=== PATIENT | female | born 1940 | race Caucasian/White ===

== ENCOUNTER 2016-05-30 07:10 | Emergency (ER) | payer OTHER ==
[~2016-05-30] VITALS: Ht 152.4 cm; Wt 36.3 kg
[2016-05-30 07:25] VITALS: BP 140/54
== END 2016-05-30 08:08 | disposition home or self-care (01) ==
LOC: ER 07:16
DX: J20.9 Acute bronchitis, unspecified (principal)

== ENCOUNTER 2017-04-24 14:51 | Inpatient (IN) | payer OTHER ==
[~2017-04-24] VITALS: Ht 157.5 cm; Wt 36.2 kg
[2017-04-24 15:56] LABS: Basophils # (auto) 0 uL; Basophils % (auto) 0.4 % (0.0-2.0); Eosinophils # (auto) 0.1 uL; Eosinophils % (auto) 0.8 % (0.0-7.0); Hematocrit 34.7 % (36.0-46.0); Hemoglobin 11.4 g/dL (12.2-16.2); Lymphocytes # (auto) 0.9 uL; Lymphocytes % (auto) 8.5 % (10.0-50.0); Mean Corpuscular Hemoglobin 28.9 pg (28.0-32.0); Mean Corpuscular Hgb Conc. 32.9 g/dL (32.0-36.0); Mean Corpuscular Volume 87.9 fL (80.0-100.0); Monocytes # (auto) 0.9 uL; Monocytes % (auto) 8.6 % (0.0-12.0); Neutrophils # (auto) 8.2 uL; Neutrophils % (auto) 81.7 % (37.0-80.0); Nucleated Red Blood Cells % 0.1 %; Platelet Count (auto) 225 10^3/uL (140-450); Red Blood Cells 3.94 10^6/uL (4.0-5.20); Red Cell Distribution Width 13.8 % (11.8-14.3); White Blood Cell 10.1 10^3/uL (4.4-10.8)
[2017-04-24 16:18] LABS: Alanine Aminotransferase 13 U/L (13-56); Albumin 2.6 g/dL (3.4-5.0); Alkaline Phosphatase 81 U/L (45-117); Anion Gap 5 (5-15); Aspartate Aminotransferase 13 U/L (15-37); Bilirubin, Total 0.3 mg/dL (0.2-1.0); Blood Urea Nitrogen 10 mg/dL (7-18); Calcium 7.9 mg/dL (8.5-10.1); Carbon Dioxide 30 mmol/L (21-32); Chloride 107 mmol/L (98-107); GFR African American 199 mL/min; GFR Non-African American 165 mL/min; Glucose 104 mg/dL (74-106); Magnesium 2.4 mg/dL (1.6-2.6); Potassium 3.7 mmol/L (3.5-5.1); Sodium 142 mmol/L (136-145); Total Protein 6.7 g/dL (6.4-8.2)
[2017-04-25] MEDS ORDERED: IOHEXOL 350 MG/ML 100ML IJ ONE (07:33)
[2017-04-25] MEDS ORDERED: IPRATROPIUM BROM 0.5 MG/2.5ML INH SOL NEB ONE (07:45)
[2017-04-25] MEDS ORDERED: cefTRIAXone 1GM/10ml IVPUSH 10 ML IV ONE (07:45)
[2017-04-25] MEDS ORDERED: methylPREDNISolone SOD SUCC 125 MG/2 ML VL IV ONE (07:45)
[2017-04-25] MEDS ORDERED: ALBUTEROL SULF 2.5 MG/0.5ML(0.5%) NEB SOLN NEB ONE (07:45)
[2017-04-25] MEDS ORDERED: AZITHROMYCIN 500MG/ 250ML 250 ML IV ONE (10:30)
[2017-04-25] MEDS ORDERED: PNEUMOCOCCAL VACC POLYS 25 MCG/0.5 ML VIAL IM ONE (12:00)
[2017-04-25] MEDS ORDERED: NITROGLYCERIN 0.4 MG SL TAB SL PRN (12:00)
[2017-04-25] MEDS ORDERED: MORPHINE SULFATE 4 MG/ML SYR/VIAL IV PRN (12:00)
[2017-04-25] MEDS: guaiFENesin-CODEINE LIQUID 5 ML UD PO SCH ×2 (12:34→20:17)
[2017-04-25] MEDS: LEVOFLOXACIN 750MG 150 ML IV SCH ×2 (12:50→14:25)
[2017-04-25 17:11] VITALS: BP 125/68
[2017-04-25] MEDS ORDERED: PSEU-123 PO (18:28)
[2017-04-25] MEDS ORDERED: CETI1TAB36 PO (18:29)
[2017-04-25 20:00] VITALS: BP 105/53
[2017-04-25 21:49] VITALS: BP 105/53
[2017-04-26] MEDS: guaiFENesin-CODEINE LIQUID 5 ML UD PO SCH ×2 (04:38→11:45)
[2017-04-26 05:12] VITALS: BP 115/60
[2017-04-26 06:51] LABS: Basophils # (auto) 0 uL; Eosinophils # (auto) 0 uL; Eosinophils % (auto) 0.1 % (0.0-7.0); Hematocrit 31.6 % (36.0-46.0); Hemoglobin 10.2 g/dL (12.2-16.2); Lymphocytes # (auto) 0.9 uL; Lymphocytes % (auto) 6.6 % (10.0-50.0); Mean Corpuscular Hemoglobin 28.1 pg (28.0-32.0); Mean Corpuscular Hgb Conc. 32.2 g/dL (32.0-36.0); Monocytes # (auto) 1.5 uL; Monocytes % (auto) 11.4 % (0.0-12.0); Neutrophils % (auto) 81.9 % (37.0-80.0); Platelet Count (auto) 290 10^3/uL (140-450); Red Blood Cells 3.64 10^6/uL (4.0-5.20); White Blood Cell 13.5 10^3/uL (4.4-10.8)
[2017-04-26 07:00] VITALS: BP 98/54
[2017-04-26 08:00] VITALS: BP 98/54
[2017-04-26] MEDS ORDERED: ENOXAPARIN SOD 30 MG/0.3 ML SYRINGE SC SCH (10:00)
[2017-04-26] MEDS ORDERED: ENOXAPARIN SOD 40 MG/0.4 ML SYRINGE SUBCUT SCH (10:00)
[2017-04-26] MEDS ORDERED: FLORASTOR (S. BOULARDII) 250 MG CAP PO SCH (10:00)
[2017-04-26] MEDS ORDERED: LEVOFLOXACIN 750MG 150 ML IV SCH (10:00)
[2017-04-26] MEDS ORDERED: ALBU0.5N2 IN (11:01)
[2017-04-26] MEDS ORDERED: LEVO750T2 PO (11:01)
[2017-04-26] MEDS ORDERED: GUAI600T64 PO (11:01)
[2017-04-26 11:51] VITALS: BP 100/53
[2017-04-26 16:21] VITALS: BP 100/52
== END 2017-04-26 17:00 | disposition home health service (06) | DRG 189 ==
LOC: ER 14:51 → EDBD 14:51 → TELE 14:52 → ER 04-25 00:59 → TELE-CENTR 04-25 17:57
PROVIDERS: ADMIT Hospitalist; ATTEND Hospitalist
DX: J96.21 Acute and chronic respiratory failure with hypoxia (principal); J18.9 Pneumonia, unspecified organism; E46 Unspecified protein-calorie malnutrition; J47.0 Bronchiectasis with acute lower respiratory infection; Z68.1 Body mass index [BMI] 19.9 or less, adult; T38.0X5A Adverse effect of glucocorticoids and synthetic analogues, initial encounter; D72.829 Elevated white blood cell count, unspecified; Z23 Encounter for immunization
CPT/HCPCS: 36415; 71046; 71275; 80053; 83605; 83735; 84484; 85025; 87040; 87070; 87205; 87501; 87804; 93005; 93306; 94640; 96365; 96366; 96367; 96372; 96375; 99291; J1956

== ENCOUNTER 2018-11-25 11:40 | Emergency (ER) | payer OTHER ==
[~2018-11-25] VITALS: Ht 152.4 cm; Wt 43.1 kg
[~2018-11-25 11:40] MED LIST: ALBU0.5N2 IN; CETI1TAB36 PO; GUAI600T64 PO; LEVO750T2 PO; PSEU-123 PO
[2018-11-25 13:36] LABS: Basophils # (auto) 0 uL; Basophils % (auto) 0.2 % (0.0-2.0); Eosinophils # (auto) 0 uL; Eosinophils % (auto) 0.1 % (0.0-7.0); Hematocrit 40.9 % (36.0-46.0); Hemoglobin 13.5 g/dL (12.2-16.2); Lymphocytes # (auto) 0.7 uL; Lymphocytes % (auto) 5.4 % (10.0-50.0); Mean Corpuscular Hemoglobin 29.8 pg (28.0-32.0); Mean Corpuscular Volume 90.2 fL (80.0-100.0); Monocytes # (auto) 0.4 uL; Monocytes % (auto) 3.5 % (0.0-12.0); Neutrophils # (auto) 11.6 uL; Neutrophils % (auto) 90.8 % (37.0-80.0); Platelet Count (auto) 175 10^3/uL (140-450); Red Blood Cells 4.53 10^6/uL (4.0-5.20); Red Cell Distribution Width 14.2 % (11.8-14.3); White Blood Cell 12.7 10^3/uL (4.4-10.8)
[2018-11-25] MEDS ORDERED: KETOROLAC TROMETH 30 MG/ML 1ML VIAL IV ONE (13:45)
[2018-11-25 14:02] LABS: Alanine Aminotransferase 15 U/L (13-56); Albumin 3.6 g/dL (3.4-5.0); Anion Gap 5 (5-15); Aspartate Aminotransferase 19 U/L (15-37); BUN/Creatinine Ratio 41.2; Blood Urea Nitrogen 28 mg/dL (7-18); Calcium 8.4 mg/dL (8.5-10.1); Carbon Dioxide 27 mmol/L (21-32); Chloride 110 mmol/L (98-107); GFR African American 108 mL/min; GFR Non-African American 89 mL/min; Glucose 132 mg/dL (74-106); Potassium 3.8 mmol/L (3.5-5.1); Sodium 142 mmol/L (136-145)
[2018-11-25 14:06] LABS: Alkaline Phosphatase 86 U/L (45-117); Bilirubin, Total 0.5 mg/dL (0.2-1.0); Total Protein 6.7 g/dL (6.4-8.2)
[2018-11-25 14:24] VITALS: BP 132/53
[2018-11-25 14:26] LABS: Urine Bacteria FEW /hpf (None Seen); Urine Blood Negative /uL (Negative); Urine Hyaline Cast FEW /lpf (0 - 2); Urine Specific Gravity 1.016 (1.001-1.035); Urine WBC 48 /hpf (0 - 5)
[2018-11-25] MEDS ORDERED: SODIUM CHLORIDE 0.9% 1,000 ML IV ONE (14:30)
[2018-11-25] MEDS ORDERED: cefTRIAXone 1GM/50ML D5W 50 ML IV ONE (14:45)
== END 2018-11-25 17:45 | disposition home or self-care (01) ==
LOC: EDBD 11:40 → ER 11:42
DX: N39.0 Urinary tract infection, site not specified (principal); N20.2 Calculus of kidney with calculus of ureter; N13.4 Hydroureter; Z79.2 Long term (current) use of antibiotics; Z79.899 Other long term (current) drug therapy
CPT/HCPCS: 36415; 71045; 74176; 80053; 81001; 84484; 85025; 93005; 96365; 96375; 99284; J0696; J1885; J7030

== ENCOUNTER 2024-05-03 01:45 | Inpatient (IN) | payer OTHER ==
[2024-05-03] VITALS (9 sets, daily range): BP systolic 126–148; BP diastolic 56–67; PULSE 89–106; RESP 16–18; TEMP 97.9–98.3; O2SAT 93–99
[~2024-05-03] VITALS: Ht 152.4 cm; Wt 31.4 kg
[~2024-05-03 01:45] MED LIST changes: -LEVO750T2 PO; +LEVO750T8 PO; -PSEU-123 PO; +PSEU-295 PO
--- NOTE | 2024-05-03 02:10 | ED.PDOC ---
Musculoskeletal HPI Comments 84 year old female brought in by EMS presents to the ED with a chief complaint of RT leg/hip pain onset today (05/03/24). Per EMS, patient was getting out of bed, lost her balance, fell and landed on RT leg, with swelling noted to RT hip region. Pain medication was given, pain improved from 10/10 to 5/10 after medication. PMHx COPD. Denies any LOC, head injury, nausea, vomiting, chest pain, shortness of breath, headache, dizziness. No other symptoms or modifying factors present at this time. Chief Complaint: Fall Injury Time Seen by MD: 01:49 Primary Care Provider: DR SINCLAIR Reviewed Notes: Medications, Allergies Allergies: Coded Allergies: NO KNOWN ALLERGIES (Unverified , 05/30/16) Home Meds Active Scripts Levofloxacin (Levaquin 750 mg) 750 Mg Tab, 1 TAB PO DAILY for 5 Days, #5 TAB Prov:SHAYAN BARNEY MD 04/26/17 Albuterol Sulfate (Albuterol Sulfate) 0.5 % Neb, 0.5 % IN Q4HPRN PRN, #100 AMB Prov:SHAYAN BARNEY MD 04/26/17 Guaifenesin (GUAIFENESIN ER) 600 Mg Tab, 600 MG PO BID, #90 TAB Prov:SHAYAN BARNEY MD 04/26/17 Reported Medications Cetirizine Hcl (ZYRTEC ALLERGY) 10 Mg Tab, 10 MG PO DAILY, TAB 04/25/17 Pseudoephedrine Hcl (Sudogest) 30 Mg Tab, 20 MG PO BID, TAB 04/25/17 Information Source: Patient, Emergency Med Personnel Mode of Arrival: EMS Location: Right Extremity Location: Hip, Leg Timing: Hours Prehospital treatment: Pain Meds Severity: Moderate Able to Move Extremity: No Pain: Moderate Circumstances: Fall Onset of Symptoms: After Trauma Symptoms: Swelling, Pain DVT Risk Factors: NONE Associated signs and symptoms: Leg pain, Hip pain Past Medical History PAST MEDICAL HISTORY: COPD Surgical History: Denies all surgeries ELEVATOR TENDER History: No Pertinent ELEVATOR TENDER History Family History Family History: Unknown Social History Smoker: Non-Smoker Alcohol: Denies ETOH Use Drugs: Denies Drug Use Lives In: Home Constitutional: denies: chills, diaphoresis, fatigue, fever, malaise, sweats, weakness, others EENTM: denies: blurred vision, double vision, ear bleeding, ear discharge, ear drainage, ear pain, ear ringing, eye pain, eye redness, hearing loss, mouth pa in, mouth swelling, nasal discharge, nose bleeding, nose congestion, nose pain, photophobia, tearing, throat pain, throat swelling, voice changes, others Respiratory: denies: cough, hemoptysis, orthopnea, SOB at rest, shortness of breath, SOB with excertion, stridor, wheezing, others Cardiovascular: denies: chest pain, dizzy spells, diaphoresis, Dyspnea on exertion, edema, irregular heart beat, left arm pain, lightheadedness, palpitations, PND, syncope, others Gastrointestinal: denies: abdomen distended, abdominal pain, blood streaked bowels, constipated, diarrhea, dysphagia, difficulty swallowing, hematemesis, melena, nausea, poor appetite, poor fluid intake, rectal bleeding, rectal pain, vomiting, others Genitourinary: denies: abnormal vagina bleeding, burning, dyspareunia, dysuria, flank pain, frequency, hematuria, incontinence, pain, , vagina discharge, urgency, others Neurological: denies: dizziness, fainting, headache, left sided numbness, left sided weakness, numbness, paresthesia, pre-existing deficit, right sided numbness, right sided weakness, seizure, speech problems, tingling, tremors, weakness, others Musculoskeletal: reports: others (RT leg pain, RT hip); denies: back pain, gout, joint pain, joint swelling, muscle pain, muscle stiffness, neck pain Integumetry: denies: bruises, change in color, change in hair/nails, dryness, laceration, lesions, lumps, rash, wounds, others Allergic/Immunocompromised: denies: Difficulty Healing, Frequent Infections, Hives, Itching, others Hematologic/Lymphatic: denies: anemia, blood clots, easy bleeding, easy bruising, swollen glands, others Endocrine: denies: excessive hunger, excessive sweating, excessive thirst, excessive urination, flushing, intolerance to cold, intolerance to heat, unexplained weight gain, unexplained weight loss, others Psychiatric: denies: anxiety, bipolar disorder, depression, hopeless, panic disorder, schizophrenia, sleepless, suicidal, others All Other Systems: Reviewed and Negative Physical Exam General Appearance: No Apparent Distress, Normal HEENT: Normal ENT Inspection, Pharynx Normal, TMs Normal Neck: Full Range of Motion, Non-Tender, Normal, Normal Inspection Respiratory: Chest Non-Tender, Lungs Clear, No Accessory Muscle Use, No Respiratory Distress, Normal Breath Sounds Cardiovascular: No Edema, No JVD, No Murmur, No Gallop, Normal Peripheral Pulses, Regular Rate/Rhythm Breast Exam: Deferred Gastrointestinal: No Organomegaly, Non Tender, No Pulsatile Mass, Normal Bowel Sounds, Soft Genitalia: Deferred Pelvic: Deferred Rectal: Deferred Extremities: No calf tenderness, Normal capillary refill, Normal inspection, Normal range of motion, Non-tender, No pedal edema Musculoskeletal : Apperance: Normal Neurologic: Alert, flexible shaft winder II-XII nml as Tested, No Motor Deficits, Normal Affect, Normal Mood, No Sensory Deficits Cerebellar Function: Normal Reflexes: Normal Skin: Dry, Normal Color, Warm Lymphatic: No Adenopathy Was a procedure done? Was a procedure done?: No Differential Diagnosis EXT Differential Diagnosis: Cellulitis, Fracture, Sprain, Dislocation, Laceration, Strain, Neurovascular injury, Other X-Ray, Labs, Meds, VS Vital Signs Date Time Temp Pulse Resp B/P (MAP) Pulse Ox O2 Delivery O2 Flow Rate FiO2 05/03/24 02:52 97.9 97.9 05/03/24 01:54 97.6 92 16 178/92 (120) 92 Lab Test 05/03/24 02:09 Range/Units White Blood Count 9.9 4.4-10.8 10^3/uL Red Blood Count 3.69 L 4.0-5.20 10^6/uL Hemoglobin 10.9 L 12.2-16.2 g/dL Hematocrit 33.7 L 36.0-46.0 % Mean Corpuscular Volume 91.2 80.0-100.0 fL Mean Corpuscular Hemoglobin 29.5 28.0-32.0 pg Mean Corpuscular Hemoglobin Concent 32.4 32.0-36.0 g/dL Red Cell Distribution Width 14.4 H 11.8-14.3 % Platelet Count 192 140-450 10^3/uL Mean Platelet Volume 7.5 6.9-10.8 fL Neutrophils (%) (Auto) 85.1 H 37.0-80.0 % Lymphocytes (%) (Auto) 6.1 L 10.0-50.0 % Monocytes (%) (Auto) 8.5 0.0-12.0 % Eosinophils (%) (Auto) 0.2 0.0-7.0 % Basophils (%) (Auto) 0.1 0.0-2.0 % Neutrophils # (Auto) 8.4 1.6-8.6 10 ^3/uL Lymphocytes # (Auto) 0.6 0.4-5.4 10 ^3/uL Monocytes # (Auto) 0.8 0-1.3 10 ^3/uL Eosinophils # (Auto) 0 0-0.8 10 ^3/uL Basophils # (Auto) 0 0-0.2 10 ^3/uL Nucleated Red Blood Cells 0.0 % Prothrombin Time 10.6 9.3-11.8 sec Prothrombin Time INR 1.00 0.9-1.15 Activated Partial Thromboplast Time 25.9 24.5-34.5 SEC Sodium Level 142 136-145 mmol/L Potassium Level 4.4 3.5-5.1 mmol/L Chloride Level 102 98-107 mmol/L Carbon Dioxide Level 35 H 20-31 mmol/L Anion Gap 5 5-15 Blood Urea Nitrogen 18 9-23 mg/dL Creatinine 0.42 L 0.550-1.02 mg/dL Glomerular Filtration Rate Calc 96 >90 mL/min BUN/Creatinine Ratio 42.9 H 10.0-20.0 Serum Glucose 149 H 74-106 mg/dL Calcium Level 9.5 8.7-10.4 mg/dL Total Bilirubin 0.4 0.2-1.0 mg/dL Aspartate Amino Transferase (AST) 16 13-40 U/L Alanine Aminotransferase (ALT) 17 7-40 U/L Alkaline Phosphatase 80 46-116 U/L Total Protein 6.2 5.7-8.2 g/dL Albumin 4.1 3.2-4.8 g/dL [address] [address] Ph: [phone] DIAGNOSTIC IMAGING Diagnostic Imaging Report : [id number] Signed PATIENT: SANDRA VILLAREAL ACCT: [id number] UNIT: [id number] : 1940 LOC: ER ROOM / BED: / AGE / SEX: 84 / F ADM STATUS: REG ER SERVICE 0154 ORDERING PHYSICIAN: ERIN LI MD PROCEDURE(s): CXRP - CHEST PORTABLE REASON: pre-op ORDER NUMBER(s): [id number], ACCESSION NUMBER(s): [id number] CHEST RADIOGRAPH Indication: pre-op Technique: Single frontal view of the chest was obtained COMPARISON: None FINDINGS: Lines and Tubes: None Lungs: There are increased interstitial markings noted. Pleura: There is blunting of the left costophrenic sulcus which may represent a tiny Effusion. Cardiomediastinal contours: Unremarkable Bones: Unremarkable IMPRESSION: 1. Increased interstitial markings. 2. Query tiny left pleural effusion. ATED BY: DONG BENJAMIN MD DICTATED DATE/TIME: 05/03/24245 SIGNED BY: DONG BENJAMIN MD SIGNED DATE/TIME: 05/03/24245 CC: [place] [address] Ph: [phone] DIAGNOSTIC IMAGING Diagnostic Imaging Report : [id number] Signed PATIENT: SANDRA VILLAREAL ACCT: [id number] UNIT: [id number] : 1940 LOC: ER ROOM / BED: / AGE / SEX: 84 / F ADM STATUS: REG ER SERVICE 0154 ORDERING PHYSICIAN: ERIN LI MD PROCEDURE(s): RFEM - R FEMUR XRAY REASON: pain s/p fall ORDER NUMBER(s): [id number], ACCESSION NUMBER(s): [id number] EXAM: XY R FEMUR XRAY HISTORY: pain s/p fall COMPARISON: None TECHNIQUE: AP and lateral views of the right femur were performed. FINDINGS/IMPRESSION: There is a comminuted angulated intertrochanteric fracture of the right proximal femur. The bones are osteopenic. ATED BY: DONG BENJAMIN MD DICTATED DATE/TIME: 05/03/24253 SIGNED BY: DONG BENJAMIN MD SIGNED DATE/TIME: 05/03/24253 CC: [place] [id number] Ph: [phone] DIAGNOSTIC IMAGING Diagnostic Imaging Report : [id number] Signed PATIENT: SANDRA VILLAREAL ACCT: [id number] UNIT: [id number] : 1940 LOC: ER ROOM / BED: / AGE / SEX: 84 / F ADM STATUS: REG ER SERVICE 3 ORDERING PHYSICIAN: ERIN LI MD PROCEDURE(s): RHIP - R HIP COMPLETE XRAY REASON: pain s/p fall ORDER NUMBER(s): [id number], ACCESSION NUMBER(s): [id number] INDICATION: pain s/p fall TECHNIQUE: Single AP view of the pelvis was obtained. COMPARISON: None FINDINGS: There is a comminuted angulated intratrochanteric fracture of the right proximal femur. The bones are somewhat osteopenic. Incidental note is made of an intrauterine device in the low pelvis. IMPRESSION: 1. Fracture of the right proximal femur. ATED BY: DONG BENJAMIN MD DICTATED DATE/TIME: 05/03/24246 SIGNED BY: DONG BENJAMIN MD SIGNED DATE/TIME: 05/03/24246 CC: Time of 1ST Reevaluation: 02:19 Reevaluation 1ST: Unchanged Time of 2ND Reevaluation: 03:18 Reevaluation 2ND: Unchanged Patient Education/Counseling: Diagnosis, Treatment, Prognosis Family Education/Counseling: No Family Present Additional Information The following tests were ordered, and results were reviewed by me: CBC, CMP, PTPTT, XY CHEST, R HIP COMPLETE XRAY, R FEMUR XRAY Additional Information was gathered from interviewing the following independent historians: EMS I reviewed and agreed with the following test results read by other providers: XY CHEST, R HIP COMPLETE XRAY, R FEMUR XRAY I discussed treatment and results with medical personnel and: patient Departure 1 Departure Time of Disposition: 03:19 Impression: Primary Impression: Closed fracture of right hip Disposition: ADMITTED INPATIENT Admit to: Med Surg Condition: Guarded Discharged With: Self Critical Care Note Critical Care Time?: No Stability Stability form required: No I personally scribed for ERIN LI MD ([email or web address]) on 05/03/24 at 02:10. Electronically submitted by Janelle Peñaloza ([email or web address]). I personally scribed for ERIN LI MD ([email or web address]) on 05/03/24 at 02:23. Electronically submitted by Janelle Peñaloza ([email or web address]). I personally scribed for ERIN LI MD ([email or web address]) on 05/03/24 at 03:14. Electronically submitted by Janelle Peñaloza ([email or web address]). ERIN LI MD May 03, 2024 02:10
[2024-05-03 02:25] LABS: Basophils # (auto) 0 10 ^3/uL (0-0.2); Basophils % (auto) 0.1 % (0.0-2.0); Eosinophils # (auto) 0 10 ^3/uL (0-0.8); Eosinophils % (auto) 0.2 % (0.0-7.0); Hematocrit 33.7 % (36.0-46.0); Hemoglobin 10.9 g/dL (12.2-16.2); Lymphocytes # (auto) 0.6 10 ^3/uL (0.4-5.4); Lymphocytes % (auto) 6.1 % (10.0-50.0); Mean Corpuscular Hemoglobin 29.5 pg (28.0-32.0); Mean Corpuscular Hgb Conc. 32.4 g/dL (32.0-36.0); Mean Corpuscular Volume 91.2 fL (80.0-100.0); Monocytes # (auto) 0.8 10 ^3/uL (0-1.3); Monocytes % (auto) 8.5 % (0.0-12.0); Neutrophils # (auto) 8.4 10 ^3/uL (1.6-8.6); Neutrophils % (auto) 85.1 % (37.0-80.0); Platelet Count (auto) 192 10^3/uL (140-450); Red Blood Cells 3.69 10^6/uL (4.0-5.20); Red Cell Distribution Width 14.4 % (11.8-14.3); White Blood Cell 9.9 10^3/uL (4.4-10.8)
[2024-05-03 02:40] LABS: Partial Thromboplastin Time 25.9 SEC (24.5-34.5); Prothrombin Time 10.6 sec (9.3-11.8)
--- NOTE | 2024-05-03 02:49 | DVH ---
CHEST RADIOGRAPH Indication: pre-op Technique: Single frontal view of the chest was obtained COMPARISON: None FINDINGS: Lines and Tubes: None Lungs: There are increased interstitial markings noted. Pleura: There is blunting of the left costophrenic sulcus which may represent a tiny Effusion. Cardiomediastinal contours: Unremarkable Bones: Unremarkable IMPRESSION: 1. Increased interstitial markings. 2. Query tiny left pleural effusion.
--- NOTE | 2024-05-03 02:50 | DVH ---
INDICATION: pain s/p fall TECHNIQUE: Single AP view of the pelvis was obtained. COMPARISON: None FINDINGS: There is a comminuted angulated intratrochanteric fracture of the right proximal femur. Th e bones are somewhat osteopenic. Incidental note is made of an intrauterine device in the low pelvis. IMPRESSION: 1. Fracture of the right proximal femur.
[2024-05-03 02:54] LABS: Alanine Aminotransferase 17 U/L (7-40); Albumin 4.1 g/dL (3.2-4.8); Alkaline Phosphatase 80 U/L (46-116); Anion Gap 5 (5-15); Aspartate Aminotransferase 16 U/L (13-40); BUN/Creatinine Ratio 42.9 (10.0-20.0); Bilirubin, Total 0.4 mg/dL (0.2-1.0); Blood Urea Nitrogen 18 mg/dL (9-23); Calcium 9.5 mg/dL (8.7-10.4); Chloride 102 mmol/L (98-107); Potassium 4.4 mmol/L (3.5-5.1); Sodium 142 mmol/L (136-145); Total Protein 6.2 g/dL (5.7-8.2)
--- NOTE | 2024-05-03 02:56 | DVH ---
EXAM: XY R FEMUR XRAY HISTORY: pain s/p fall COMPARISON: None TECHNIQUE: AP and lateral views of the right femur were performed. FINDINGS/IMPRESSION: There is a comminuted angulated intertrochanteric fracture of the right proximal femur. The bones are osteopenic.
[2024-05-03 03:15] LABS: Carbon Dioxide 35 mmol/L (20-31); Glucose 149 mg/dL (74-106)
[2024-05-03] MEDS: ONDANSETRON HCL 4 MG/2 ML VIAL IV ONE (03:15)
[2024-05-03] MEDS: MORPHINE SULFATE 4 MG/ML SYR/VIAL IV ONE (03:23)
[2024-05-03] MEDS: KETOROLAC TROMETH 30 MG/ML 1ML VIAL IV ONE (03:28)
[2024-05-03] MEDS ORDERED: ONDANSETRON HCL 4 MG/2 ML VIAL IV PRN (04:15)
[2024-05-03] MEDS ORDERED: MORPHINE SULFATE INJ 2 MG/ml SYRG IV PRN ×2 (04:15)
[2024-05-03] MEDS ORDERED: NITROGLYCERIN 0.4 MG SL TAB SL PRN (04:15)
[2024-05-03] MEDS ORDERED: DOCUSATE SOD 100 MG CAP PO PRN (04:15)
[2024-05-03] MEDS: SODIUM CHLORIDE 0.9% 1,000 ML IV SCH (04:34)
[2024-05-03 06:51] LABS: Urine Bacteria None Seen /hpf (None Seen)
[2024-05-03 07:13] LABS: Urine Blood TRACE /uL (Negative); Urine Clarity Clear (Clear); Urine Color Light-Yellow (Yellow); Urine Protein, UAD TRACE (Negative); Urine Specific Gravity 1.023 (1.001-1.035); Urine Squamous Epithelial Cell FEW /hpf (<5); Urine Urobilinogen Normal (Negative); Urine WBC 3 /HPF (0-5); Urine pH 6.5 (5.0-9.0)
[2024-05-03] MEDS ORDERED: hydrALAZINE HCL 20 MG/ML VL IV PRN (07:45)
[2024-05-03 08:32] LABS: Basophils # (auto) 0 10 ^3/uL (0-0.2); Basophils % (auto) 0.2 % (0.0-2.0); Eosinophils # (auto) 0 10 ^3/uL (0-0.8); Eosinophils % (auto) 0.3 % (0.0-7.0); Hematocrit 31.4 % (36.0-46.0); Lymphocytes # (auto) 0.8 10 ^3/uL (0.4-5.4); Lymphocytes % (auto) 8.5 % (10.0-50.0); Mean Corpuscular Hemoglobin 29.3 pg (28.0-32.0); Mean Corpuscular Hgb Conc. 31.8 g/dL (32.0-36.0); Monocytes # (auto) 0.9 10 ^3/uL (0-1.3); Monocytes % (auto) 9.7 % (0.0-12.0); Neutrophils # (auto) 7.5 10 ^3/uL (1.6-8.6); Neutrophils % (auto) 81.3 % (37.0-80.0); Platelet Count (auto) 172 10^3/uL (140-450); Red Blood Cells 3.41 10^6/uL (4.0-5.20); White Blood Cell 9.3 10^3/uL (4.4-10.8)
[2024-05-03] MEDS ORDERED: FLUT1AER3 IN (11:11)
[2024-05-03] MEDS ORDERED: ALBU0.084 NEB (11:11)
--- NOTE | 2024-05-03 11:47 | DVHHP2 ---
Admitting Diagnosis: fall History of Present Illness HPI 84 F who comes to ER c/o of R hip pain. She states she fell out of bed and landed on her R hip. When she came to ER imaging revealed R femoral fx. She will be admitted to the hospital for ortho eval and surgery, aside from R hip pain she denies any other complaints. Home Meds Active Scripts Levofloxacin (Levaquin 750 mg) 750 Mg Tab, 1 TAB PO DAILY for 5 Days, #5 TAB Prov:SHAYAN BARNEY MD 04/26/17 Albuterol Sulfate (Albuterol Sulfate) 0.5 % Neb, 0.5 % IN Q4HPRN PRN, #100 AMB Prov:SHAYAN BARNEY MD 04/26/17 Guaifenesin (GUAIFENESIN ER) 600 Mg Tab, 600 MG PO BID, #90 TAB Prov:SHAYAN BARNEY MD 04/26/17 Reported Medications Albuterol Sulfate (Albuterol Sulfate) 0.083 % Neb, 1 VIAL NEB DAILY, #50 VIAL 05/03/24 Roqtgmfvsdq-Trbbwuqzpxtd-Ydhxg (Trelegy Ellipta 100-62.5-25 Mcg/INH) 1 Aer Aer, 1 AER IN DAILY, AER 05/03/24 Discontinued Reported Medications Cetirizine Hcl (ZYRTEC ALLERGY) 10 Mg Tab, 10 MG PO DAILY, TAB 04/25/17 Pseudoephedrine Hcl (Sudogest) 30 Mg Tab, 20 MG PO BID, TAB 04/25/17 Past Medical History Pulmonary: COPD Patient Family History: Cardiovascular disease G8 BROTHER Diabetes mellitus G8 BROTHER Review of Systems Constitutional: No symptom reported Eyes: No symptom reported Cardiovascular: No symptom reported Gastrointestinal: No symptom reported Musculoskeletal: Leg pain, Joint pain Skin: No symptom reported Psychiatric: No symptom reported H&P Exam Vital Signs Vital Signs Date Time Temp Pulse Resp B/P (MAP) Pulse Ox O2 Delivery O2 Flow Rate FiO2 05/03/24 10:47 98.3 92 18 148/67 (94) 98 98.3 05/03/24 10:15 Nasal Cannula* 2 28 General Appeara: Well developed Head Exam: Normal inspection Nasal Exam: Normal inspection Pulmonary/Respiratory: Normal breath sounds Cardiovascular/Chest: Normal inspection Labs/Xrays Labs Test 05/03/24 08:04 05/03/24 03:30 05/03/24 02:09 Range/Units White Blood Count 9.3 4.4-10.8 10^3/uL Red Blood Count 3.41 L 4.0-5.20 10^6/uL Hemoglobin 10.0 L 12.2-16.2 g/dL Hematocrit 31.4 L 36.0-46.0 % Mean Corpuscular Volume 92.0 80.0-100.0 fL Mean Corpuscular Hemoglobin 29.3 28.0-32.0 pg Mean Corpuscular Hemoglobin Concent 31.8 L 32.0-36.0 g/dL Red Cell Distribution Width 14.0 11.8-14.3 % Platelet Count 172 140-450 10^3/uL Mean Platelet Volume 7.5 6.9-10.8 fL Neutrophils (%) (Auto) 81.3 H 37.0-80.0 % Lymphocytes (%) (Auto) 8.5 L 10.0-50.0 % Monocytes (%) (Auto) 9.7 0.0-12.0 % Eosinophils (%) (Auto) 0.3 0.0-7.0 % Basophils (%) (Auto) 0.2 0.0-2.0 % Neutrophils # (Auto) 7.5 1.6-8.6 10 ^3/uL Lymphocytes # (Auto) 0.8 0.4-5.4 10 ^3/uL Monocytes # (Auto) 0.9 0-1.3 10 ^3/uL Eosinophils # (Auto) 0 0-0.8 10 ^3/uL Basophils # (Auto) 0 0-0.2 10 ^3/uL Nucleated Red Blood Cells 0.0 % Urine Color Light-yellow Yellow Urine Clarity Clear Clear Urine pH 6.5 5.0-9.0 Urine Specific [place] 1.023 1.001-1.035 Urine Protein Trace H Negative Urine Ketones Negative Negative Urine Blood Trace H Negative /uL Urine Nitrite Negative Negative Urine Bilirubin Negative Negative Urine Urobilinogen Normal Negative mg/dL Urine Leukocyte Esterase Negative Negative /uL Urine RBC 14 0 - 4 /hpf Urine Microscopic WBC 3 0-5 /HPF Urine Squamous Epithelial Cells Few <5 /hpf Urine Bacteria None seen None Seen /hpf Urine Glucose Normal Normal mg/dL Prothrombin Time 10.6 9.3-11.8 sec Prothrombin Time INR 1.00 0.9-1.15 Activated Partial Thromboplast Time 25.9 24.5-34.5 SEC Sodium Level 142 136-145 mmol/L Potassium Level 4.4 3.5-5.1 mmol/L Chloride Level 102 98-107 mmol/L Carbon Dioxide Level 35 H 20-31 mmol/L Anion Gap 5 5-15 Blood Urea Nitrogen 18 9-23 mg/dL Creatinine 0.42 L 0.550-1.02 mg/dL Glomerular Filtration Rate Calc 96 >90 mL/min BUN/Creatinine Ratio 42.9 H 10.0-20.0 Serum Glucose 149 H 74-106 mg/dL Calcium Level 9.5 8.7-10.4 mg/dL Total Bilirubin 0.4 0.2-1.0 mg/dL Aspartate Amino Transferase (AST) 16 13-40 U/L Alanine Aminotransferase (ALT) 17 7-40 U/L Alkaline Phosphatase 80 46-116 U/L Total Protein 6.2 5.7-8.2 g/dL Albumin 4.1 3.2-4.8 g/dL Assessment/Plan Primary Diagnosis 1) R hip Fx 2) COPD plan; admit medsurg, NPO, ortho consult for surgery today, echo with cardio clearance, daily labs, preop labs and testing, will follow medically Plan discussed with: Other (n) SAMEER VILLEGAS MD May 03, 2024 11:47
--- NOTE | 2024-05-03 12:40 | DVHHP2 ---
History Allergies: Coded Allergies: NO KNOWN ALLERGIES (Unverified , 05/30/16) Chief Complaint: Right hip pain Present Illness(Onset/Duration Fall on 05/02/24 getting out of bed. No hitting head, no AMS before or after fall. FWW household ambulator prior to fall. Past Surgical History non contributory Medications see Internal med H and P, NOT on anticoagulants Physical Exam Skin intact Chest and Lungs CTA B Heart RRR neg MRG Abdomen NBS ND NT Extremities Right hip, pain with PROM right LE, NVI Right LE Vital Signs Vital Signs Date Time Temp Pulse Resp B/P (MAP) Pulse Ox O2 Delivery O2 Flow Rate FiO2 05/03/24 10:47 98.3 92 18 148/67 (94) 98 98.3 05/03/24 10:15 Nasal Cannula* 2 28 Impressions/Description 84F, Right intertrochanteric hip fracture s/p fall yesterday minimal FWW ambulator good cognition 1) pre -op medical clearance 2) pre op cardio clearance 3) if cleared , surgery Tue AM, if not, surgery when cleared Plan pre-op medical clearance, cardio clearance if/when cleared, surgery, ORIF right hip IT fracture JOBY CAMPUZANO MD May 03, 2024 12:40
--- NOTE | 2024-05-03 13:26 | DVHINCON2 ---
Date of service: May 03, 2024 Referring Physician Nati Reason for Consultation Cardiac clearance History of Present Illness This is an 84 year old female with a PMH of COPD who was brought in by EMS with complaints of right leg and hip pain since this morning. Per EMS, patient was getting out of her bed, lost her balance, fell and landed on her right leg. Patient denies LOC or head injury/trauma. En route to the ED, EMS administered the patient some pain medication, pain improved from 10/10 to 5/10 after medication. Chest x-ray shows increased interstitial markings, query tiny left pleural effusion. Right hip x-ray showed a comminuted angulated intertrochanteric fracture of the right proximal femur. Right hip x-ray revealed a fracture of the right proximal femur. Patient was admitted to the hospital. I am asked to consult on this patient. Family History: Cardiovascular disease G8 BROTHER Diabetes mellitus G8 BROTHER Allergies: Coded Allergies: NO KNOWN ALLERGIES (Unverified , 05/30/16) Home Meds Active Scripts Levofloxacin (Levaquin 750 mg) 750 Mg Tab, 1 TAB PO DAILY for 5 Days, #5 TAB Prov:SHAYAN BARNEY MD 04/26/17 Albuterol Sulfate (Albuterol Sulfate) 0.5 % Neb, 0.5 % IN Q4HPRN PRN, #100 AMB Prov:SHAYAN BARNEY MD 04/26/17 Guaifenesin (GUAIFENESIN ER) 600 Mg Tab, 600 MG PO BID, #90 TAB Prov:SHAYAN BARNEY MD 04/26/17 Reported Medications Albuterol Sulfate (Albuterol Sulfate) 0.083 % Neb, 1 VIAL NEB DAILY, #50 VIAL 05/03/24 Sfhrsskveop-Wkbjvtbhpytq-Dqdqk (Trelegy Ellipta 100-62.5-25 Mcg/INH) 1 Aer Aer, 1 AER IN DAILY, AER 05/03/24 Discontinued Reported Medications Cetirizine Hcl (ZYRTEC ALLERGY) 10 Mg Tab, 10 MG PO DAILY, TAB 04/25/17 Pseudoephedrine Hcl (Sudogest) 30 Mg Tab, 20 MG PO BID, TAB 04/25/17 Current Medications Current Medications Medications (Trade) Dose Ordered Sig/Obed Route PRN Reason Start Time Stop Time Status Last Admin Sodium Chloride 1,000 ml @ 75 mls/hr [id number] IV 05/03/24 04:15 05/03/24 04:34 Ondansetron HCl (Zofran) 4 mg Q4HP PRN IV NAUSEA / VOMITING 05/03/24 04:15 Morphine Sulfate 2 mg Q4HPRN PRN IV SEVERE PAIN (7-10 PAIN SCALE) 05/03/24 04:15 Nitroglycerin (Ntrostat Sublingual) 0.4 mg Q5MINP PRN SL FOR CHEST PAIN 05/03/24 04:15 Morphine Sulfate 2 mg Q30M PRN IV FOR CHEST PAIN 05/03/24 04:15 Docusate Sodium (Colace Capsule) 100 mg BIDPRN PRN PO FOR CONSTIPATION 05/03/24 04:15 Albuterol (Ventolin Medneb) 2.5 mg Q6HPRN PRN NEB SHORTNESS OF BREATH 05/03/24 04:15 Hydralazine HCl (Apresoline Injection) 10 mg Q6HP PRN IV SBP>150 05/03/24 07:45 Review of Systems Constitutional: denies: chills, diaphoresis, fatigue, fever, malaise, sweats, weakness, others EENTM: denies: blurred vision, double vision, ear bleeding, ear discharge, ear drainage, ear pain, ear ringing, eye pain, eye redness, hearing loss, mouth pain, mouth swelling, nasal discharge, nose bleeding, nose congestion, nose pain, photophobia, tearing, throat pain, throat swelling, voice changes, others Respiratory: denies: cough, hemoptysis, orthopnea, SOB at rest, shortness of breath, SOB with excertion, stridor, wheezing, others Cardiovascular: denies: chest pain, dizzy spells, diaphoresis, Dyspnea on exertion, edema, irregular heart beat, left arm pain, lightheadedness, palpitations, PND, syncope, others Gastrointestinal: denies: abdomen distended, abdominal pain, blood streaked bowels, constipated, diarrhea, dysphagia, difficulty swallowing, hematemesis, melena, nausea, poor appetite, poor fluid intake, rectal bleeding, rectal pain, vomiting, others Genitourinary: denies: abnormal vagina bleeding, burning, dyspareunia, dysuria, flank pain, frequency, hematuria, incontinence, pain, , vagina discharge, urgency, others Neurological: denies: dizziness, fainting, headache, left sided numbness, left sided weakness, numbness, paresthesia, pre-existing deficit, right sided numbness, right sided weakness, seizure, speech problems, tingling, tremors, weakness, others Musculoskeletal: reports: others (RT leg pain, RT hip); denies: back pain, gout, joint pain, joint swelling, muscle pain, muscle stiffness, neck pain Integumetry: denies: bruises, change in color, change in hair/nails, dryness, laceration, lesions, lumps, rash, wounds, others Allergic/Immunocompromised: denies: Difficulty Healing, Frequent Infections, Hives, Itching, others Hematologic/Lymphatic: denies: anemia, blood clots, easy bleeding, easy bruising, swollen glands, others Endocrine: denies: excessive hunger, excessive sweating, excessive thirst, excessive urination, flushing, intolerance to cold, intolerance to heat, unexplained weight gain, unexplained weight loss, others Psychiatric: denies: anxiety, bipolar disorder, depression, hopeless, panic disorder, schizophrenia, sleepless, suicidal, others All Other Systems: Reviewed and Negative Vital Signs Vital Signs Date Time Temp Pulse Resp B/P (MAP) Pulse Ox O2 Delivery O2 Flow Rate FiO2 05/03/24 10:47 98.3 92 18 148/67 (94) 98 98.3 05/03/24 10:15 Nasal Cannula* 2 28 Physical Exam GENERAL: Awake, alert, oriented. LUNGS: Clear. CARDIOVASCULAR: Heart sounds are good. ABDOMEN: Soft. EXT: RLE and right hip TTP. Labs/Diagnostic Data Labs Test 05/03/24 08:04 05/03/24 03:30 05/03/24 02:09 Range/Units White Blood Count 9.3 4.4-10.8 10^3/uL Red Blood Count 3.41 L 4.0-5.20 10^6/uL Hemoglobin 10.0 L 12.2-16.2 g/dL Hematocrit 31.4 L 36.0-46.0 % Mean Corpuscular Volume 92.0 80.0-100.0 fL Mean Corpuscular Hemoglobin 29.3 28.0-32.0 pg Mean Corpuscular Hemoglobin Concent 31.8 L 32.0-36.0 g/dL Red Cell Distribution Width 14.0 11.8-14.3 % Platelet Count 172 140-450 10^3/uL Mean Platelet Volume 7.5 6.9-10.8 fL Neutrophils (%) (Auto) 81.3 H 37.0-80.0 % Lymphocytes (%) (Auto) 8.5 L 10.0-50.0 % Monocytes (%) (Auto) 9.7 0.0-12.0 % Eosinophils (%) (Auto) 0.3 0.0-7.0 % Basophils (%) (Auto) 0.2 0.0-2.0 % Neutrophils # (Auto) 7.5 1.6-8.6 10 ^3/uL Lymphocytes # (Auto) 0.8 0.4-5.4 10 ^3/uL Monocytes # (Auto) 0.9 0-1.3 10 ^3/uL Eosinophils # (Auto) 0 0-0.8 10 ^3/uL Basophils # (Auto) 0 0-0.2 10 ^3/uL Nucleated Red Blood Cells 0.0 % Urine Color Light-yellow Yellow Urine Clarity Clear Clear Urine pH 6.5 5.0-9.0 Urine Specific [place] 1.023 1.001-1.035 Urine Protein Trace H Negative Urine Ketones Negative Negative Urine Blood Trace H Negative /uL Urine Nitrite Negative Negative Urine Bilirubin Negative Negative Urine Urobilinogen Normal Negative mg/dL Urine Leukocyte Esterase Negative Negative /uL Urine RBC 14 0 - 4 /hpf Urine Microscopic WBC 3 0-5 /HPF Urine Squamous Epithelial Cells Few <5 /hpf Urine Bacteria None seen None Seen /hpf Urine Glucose Normal Normal mg/dL Prothrombin Time 10.6 9.3-11.8 sec Prothrombin Time INR 1.00 0.9-1.15 Activated Partial Thromboplast Time 25.9 24.5-34.5 SEC Sodium Level 142 136-145 mmol/L Potassium Level 4.4 3.5-5.1 mmol/L Chloride Level 102 98-107 mmol/L Carbon Dioxide Level 35 H 20-31 mmol/L Anion Gap 5 5-15 Blood Urea Nitrogen 18 9-23 mg/dL Creatinine 0.42 L 0.550-1.02 mg/dL Glomerular Filtration Rate Calc 96 >90 mL/min BUN/Creatinine Ratio 42.9 H 10.0-20.0 Serum Glucose 149 H 74-106 mg/dL Calcium Level 9.5 8.7-10.4 mg/dL Total Bilirubin 0.4 0.2-1.0 mg/dL Aspartate Amino Transferase (AST) 16 13-40 U/L Alanine Aminotransferase (ALT) 17 7-40 U/L Alkaline Phosphatase 80 46-116 U/L Total Protein 6.2 5.7-8.2 g/dL Albumin 4.1 3.2-4.8 g/dL Assessment Right intertrochanteric hip fracture Status post fall. COPD. Plan/Recommendation I agree with your ongoing assessment and care of plan. Patient is cardiac clear for surgery. Echocardiogram. IV Hydralazine for an SBP > 150. Morphine for pain management. Nitro SL. Additional plan as per the hospital course. A total of 45 minutes was spent reviewing the patient record, examining the patient, making a diagnostic and therapeutic plan, discussing this plan with medical personnel, following up on diagnostic studies and following the patient for clinical stability excluding any and all procedures. At least 50% of this time was spent in direct, [id number] contact. Plan discussed with: Patient MINGO TIRADO MD May 03, 2024 11:54
[2024-05-03] MEDS: ACETAMINOPHEN 325 MG TAB PO PRN (14:52)
[2024-05-04] VITALS (17 sets, daily range): BP systolic 97–141; BP diastolic 47–81; PULSE 66–104; RESP 15–21; TEMP 97.6–98.4; O2SAT 98–100
[2024-05-04] MEDS: ALBUTEROL SULF 2.5 MG/0.5ML(0.5%) NEB SOLN NEB PRN (03:04)
[2024-05-04 07:11] LABS: Basophils # (auto) 0 10 ^3/uL (0-0.2); Basophils % (auto) 0.2 % (0.0-2.0); Eosinophils # (auto) 0.1 10 ^3/uL (0-0.8); Eosinophils % (auto) 0.6 % (0.0-7.0); Hematocrit 35.2 % (36.0-46.0); Lymphocytes # (auto) 0.8 10 ^3/uL (0.4-5.4); Lymphocytes % (auto) 7.2 % (10.0-50.0); Mean Corpuscular Hgb Conc. 31.3 g/dL (32.0-36.0); Mean Corpuscular Volume 92.7 fL (80.0-100.0); Monocytes # (auto) 0.7 10 ^3/uL (0-1.3); Monocytes % (auto) 7.1 % (0.0-12.0); Neutrophils # (auto) 8.9 10 ^3/uL (1.6-8.6); Neutrophils % (auto) 84.9 % (37.0-80.0); Nucleated Red Blood Cells % 0.1 %; Platelet Count (auto) 164 10^3/uL (140-450); Red Cell Distribution Width 14.2 % (11.8-14.3); White Blood Cell 10.5 10^3/uL (4.4-10.8)
--- NOTE | 2024-05-04 07:23 | DVHPN2 ---
Progress Note Date Seen: May 04, 2024 Has the PT tested + for MRSA If YES, has PT been informed?: No Medical Necessity Reason Pt with a Central, PICC or Fol: No The following are medically ne: Pagan Catheter Subjective Patient reports: No new complaints Review of Systems: MSK:Abnormal Objective vital signs Vital Sign Date Time Temp Pulse Resp B/P (MAP) Pulse Ox O2 Delivery O2 Flow Rate FiO2 05/04/24 05:00 98.0 104 17 141/69 (93) 98 98.0 05/04/24 03:04 Nasal Cannula 2.0 05/04/24 03:04 28 Total Intake and Output 05/03/24 05/03/24 05/04/24 15:00 23:00 07:00 Intake Total 0 ml 0 ml Output Total 350 ml 750 ml Balance -350 ml -750 ml medications Current Medications Medications Dose Ordered Sig/Obed Route Start Time Stop Time Status Last Admin Dose Admin Sodium Chloride 1,000 ml @ 75 mls/hr [id number] IV 05/03/24 04:15 05/03/24 16:52 75 MLS/HR Ondansetron HCl 4 mg Q4HP PRN IV 05/03/24 04:15 Morphine Sulfate 2 mg Q4HPRN PRN IV 05/03/24 04:15 Nitroglycerin 0.4 mg Q5MINP PRN SL 05/03/24 04:15 Morphine Sulfate 2 mg Q30M PRN IV 05/03/24 04:15 Docusate Sodium 100 mg BIDPRN PRN PO 05/03/24 04:15 Albuterol 2.5 mg Q6HPRN PRN NEB 05/03/24 04:15 05/04/24 03:04 2.5 MG Hydralazine HCl 10 mg Q6HP PRN IV 05/03/24 07:45 Acetaminophen 650 mg Q4HP PRN PO 05/03/24 13:00 05/04/24 03:15 650 MG Examination: GENERAL:Normal, LUNGS:Normal, CVS:Normal, MSK:Abnormal laboratory and microbiology Laboratory Tests 05/04/24 06:20 Test 05/04/24 06:20 Range/Units Serum Glucose Pending Problem List/Assessment/Plan Problem List/Assessment/Plan 1) R hip Fx 2) COPD plan; OR today with ortho to repair hip fx, cleared by cardio and medically for surgery, will follow post-op. dc planning to SNF in AM if cleared by ortho, will follow post-op Plan discussed with: Other (n) SAMEER VILLEGAS MD May 04, 2024 07:23
[2024-05-04 07:32] LABS: Alanine Aminotransferase 13 U/L (7-40); Albumin 3.8 g/dL (3.2-4.8); Alkaline Phosphatase 88 U/L (46-116); Anion Gap 12 (5-15); Aspartate Aminotransferase 16 U/L (13-40); BUN/Creatinine Ratio 38.5 (10.0-20.0); Bilirubin, Total 0.5 mg/dL (0.2-1.0); Blood Urea Nitrogen 15 mg/dL (9-23); Calcium 9.4 mg/dL (8.7-10.4); Carbon Dioxide 29 mmol/L (20-31); Chloride 102 mmol/L (98-107); Glucose 69 mg/dL (74-106); Potassium 4.1 mmol/L (3.5-5.1); Sodium 143 mmol/L (136-145); Total Protein 5.9 g/dL (5.7-8.2)
[2024-05-04] MEDS: ceFAZolin 2 GM/D5W100ml 100 ML IV ONE (07:34)
[2024-05-04] MEDS: ceFAZolin 1GM/50ML 50 ML IV ONE (07:37)
[2024-05-04] MEDS: BUPIVACAINE 0.5% P/F INJ 10 ML VIAL ONE (07:45)
[2024-05-04] MEDS ORDERED: fentaNYL CITRATE 100 MCG/2 ML VL ONE (07:52)
[2024-05-04] MEDS ORDERED: MIDAZOLAM HCL 2MG/2ML 2ml VIAL (1mg/ml) ONE (07:52)
[2024-05-04] MEDS ORDERED: KETAMINE 50mg/ML 1ml syringe ONE (07:52)
[2024-05-04] MEDS ORDERED: MORPHINE SULF PF 5 MG/10 ML VIAL ONE (07:52)
[2024-05-04] MEDS ORDERED: GLYCOPYRROLATE 0.2 MG/ML 1ML VIAL ONE (07:53)
[2024-05-04] MEDS: TRANEXAMIC ACID 10 ML ONE (07:53)
[2024-05-04] MEDS ORDERED: PROPOFOL 10 MG/ML 20 ML IV ONE (07:53)
[2024-05-04] MEDS ORDERED: HYDROCORTISONE SOD SUCC 100 MG/2ML INJ VIAL ONE (07:53)
[2024-05-04] MEDS ORDERED: LIDOCAINE 1% INJ PF 5ML AMP ONE (07:53)
[2024-05-04] MEDS ORDERED: ONDANSETRON HCL 4 MG/2 ML VIAL ONE (07:53)
[2024-05-04] MEDS ORDERED: ePHEDrine SULFATE 50 MG/ML AMP ONE (07:54)
--- NOTE | 2024-05-04 09:13 | DVHOP2 ---
Operative Report - 2 Report Details Date: 05/04/24 Preop Diagnosis: Right Femur intertrochanteric fracture Postop Diagnosis: same Surgeon: Dennis Campuzano MD Barrel Line Operator: none Anesthesiologist: Dr Kiser Anesthesia: Regional Drains: none Implant: proximal IM obey with two screw proxiaml fixation one distal static screw Consent: The patient was informed of the risks and benefits of the procedure. These include but are not limited to complications of anesthesia, postoperative infection, incomplete relief of symptoms, recurrence of symptoms, damage to blood vessels, nerves and tendons, deep venous thrombosis, pulmonary embolism and possible need for repeat surgery in the future. Complications: none Estimated Blood Loss: 40 cc Fluids: 500cc crystalloid Findings: Right femur intertrochanteric fracture Indications for Surgery: unstable fracture with requisite bedrest and complications associated with permanent bedrest Name of Procedure Performed Open reduction internal fixation of right hip intertrochanteric fracture Procedure Details Procedure Details: Patient brought in the operating room given Ancef 1 g IV piggyback preoperatively TXA 1 g IV piggyback preoperatively spinal anesthetic performed by Dr. Kiser BRICK WASHER and no N without complication transferred to the fracture table well-padded perineal post well padded left leg in well leg rizo well- padded right foot and ankle in traction boot close reduction performed under C- arm fluoro guidance with slight adduction slight traction slight internal rotation C-arm fluoro AP and lateral view showed anatomic alignment of fracture sterile prep and drape right hip time-out performed comprehension right-sided correct side open reduction internal fixation right intertrochanteric fracture correct procedure after review of operative consent history and physical my initials on right buttock 2 cm incision made proximal to greater trochanter by 3 cm sharp dissection through skin down to deep fascia deep fascia divided manual placement of proximal guide pin C-arm fluoro confirming good placement of guide pin and reaming proximal femur placement of a short 10 mm obey fixing proximally with two screws using 120 or 130 degree guides Specimen: C-arm fluoro confirming both screws in good position within head and neck then distal interlock screw static placed again with C-arm guidance C-arm fluoro taken distally to show no fracture from obey to irrigation then performed closure deep fascia 0 Vicryl subcutaneous 2-0 Vicryl skin helene fluffs ABD paper tape no drains specimens complications Condition Stable Disposition Still a Patient DENNIS CAMPUZANO MD May 04, 2024 09:13
[2024-05-04] MEDS ORDERED: ceFAZolin 1GM/50ML 50 ML IV SCH ×2 (09:15→16:00)
[2024-05-04] MEDS: LACTATED RINGER'S 1,000 ML IV SCH (09:15)
[2024-05-04] MEDS ORDERED: KETOROLAC TROMETH 30 MG/ML 1ML VIAL IV PRN (09:30)
[2024-05-04] MEDS ORDERED: IPRATROPIUM BROM 0.5 MG/2.5ML INH SOL NEB ONE (09:30)
[2024-05-04] MEDS ORDERED: ONDANSETRON HCL 4 MG/2 ML VIAL IV PRN (09:30)
[2024-05-04] MEDS ORDERED: diphenhdrAMINE HCL 50 MG/1 ML VL IV PRN (09:30)
[2024-05-04] MEDS ORDERED: DexAMETHasone SOD PHOS 10MG/1ML VIAL INJ IV PRN (09:30)
[2024-05-04] MEDS ORDERED: NALOXONE HCL 0.4 MG/ML VIAL IV PRN (09:30)
[2024-05-04] MEDS: ALBUTEROL SULF 2.5 MG/0.5ML(0.5%) NEB SOLN NEB ONE (09:51)
[2024-05-04] MEDS: ENOXAPARIN SOD 30 MG/0.3 ML SYRINGE SC SCH (10:00)
--- NOTE | 2024-05-04 10:19 | DVH ---
FLUOROSCOPY TIME: 37.5 seconds TECHNIQUE: Intraoperative radiographs of the right hip were obtained. COMPARISON: None FINDINGS: Refer to intraoperative report for further evaluation. IMPRESSION: Refer to intraoperative report for further evaluation.
--- NOTE | 2024-05-04 10:19 | DVH ---
FLUOROSCOPY TIME: 37.5 seconds TECHNIQUE: Intraoperative radiographs of the right hip were obtained. COMPARISON: None FINDINGS: Refer to intraoperative report for further evaluation. IMPRESSION: Refer to intraoperative report for further evaluation.
--- NOTE | 2024-05-04 10:27 | ECG ---
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
--- NOTE | 2024-05-04 11:02 | DVHSR ---
APPROVED REPORT EXAM: Two-dimensional and M-mode echocardiogram with Doppler and color Doppler. Blood Pressure: 127/58 mmHg INDICATION Pre-Op RISK FACTORS Height: 60, Weight: 74 DIMENSIONS LVDd3.0 (3.8-5.7cm)LA (2D)2.9 (1.9-4.0cm)Aortic Root3.1 (2.0-3.7cm) LVDs2.0 (2.5-4.0cm)LA (MM) (1.9-4.0cm)Aortic Cusp Exc1.1 (1.5-2.0cm) EF (%) 65.0 (55-70%)Rt. Atrium2.5 (1.9-4.0cm)Asc. Aorta cm IVSd1.1 (0.7-1.1cm)RV (D) (1.8-2.4cm) PWd1.1 (0.7-1.1cm) Mitral Valve MitralMitral Stenosis E wave1.04m/sMV Mean GR.mmHg A wave1.21m/sMV Peak GR.mmHg E/A ratio0.92D MVAcm2 DECEL [id number] 1/2 Etkh89jo IVRTmsDop MVA4.55cm2 Aortic Valve Aortic ValveAortic Stenosis V10.87m/Baljit Mean GR.4mmHg V21.68m/Baljit Peak GR.11mmHg LVOT Diameter1.7 (1.8-2.4cm)Doppler AVA1.17cm2 Pulmonic Valve V20.91m/s Conclusion MILD LVH AND MILD LV DIASTOLIC DYSFUNCTION LV EJECTION FRACTION IS 70% SLIGHTLY DILATED RV NORMAL VALVES NO EFFUSION
[2024-05-04] MEDS: ceFAZolin 1GM/50ML 50 ML IV SCH (14:38)
--- NOTE | 2024-05-04 22:57 | DVHPN2 ---
Progress Note - Dictate Date Seen: May 04, 2024 Has the PT tested + for MRSA If YES, has PT been informed?: No Medical Necessity Reason Pt with a Central, PICC or Fol: No The following are medically ne: Pagan Catheter Subjective Patient was seen and evaluated in follow up. Patient underwent open reduction internal fixation of right hip intertrochanteric fracture. Patient is complaining of right hip pain at the incision site. Echocardiogram showed an EF of 70%. Telemetry reviewed. vital signs Vital Sign Date Time Temp Pulse Resp B/P (MAP) Pulse Ox O2 Delivery O2 Flow Rate FiO2 05/04/24 09:57 97 21 99 05/04/24 09:51 Nasal Cannula* 3 32 05/04/24 09:10 97.8 108/39 (62) 97.8 Total Intake and Output 05/03/24 05/03/24 05/04/24 15:00 23:00 07:00 Intake Total 0 ml 100 ml Output Total 350 ml 750 ml Balance -350 ml -650 ml medications Current Medications Medications Dose Ordered Sig/Obed Route Start Time Stop Time Status Last Admin Dose Admin Sodium Chloride 1,000 ml @ 75 mls/hr [id number] IV 05/03/24 04:15 05/03/24 16:52 75 MLS/HR Ondansetron HCl 4 mg Q4HP PRN IV 05/03/24 04:15 Morphine Sulfate 2 mg Q4HPRN PRN IV 05/03/24 04:15 Nitroglycerin 0.4 mg Q5MINP PRN SL 05/03/24 04:15 Morphine Sulfate 2 mg Q30M PRN IV 05/03/24 04:15 Docusate Sodium 100 mg BIDPRN PRN PO 05/03/24 04:15 Albuterol 2.5 mg Q6HPRN PRN NEB 05/03/24 04:15 05/04/24 03:04 2.5 MG Hydralazine HCl 10 mg Q6HP PRN IV 05/03/24 07:45 Acetaminophen 650 mg Q4HP PRN PO 05/03/24 13:00 05/04/24 03:15 650 MG Lactated Ringer's 1,000 ml @ 100 mls/hr Q10H IV 05/04/24 09:15 Enoxaparin Sodium 30 mg Q12HR SC 05/04/24 10:00 Diphenhydramine HCl 25 mg Q4HP PRN IV 05/04/24 09:30 Ondansetron HCl 4 mg Q4HP PRN IV 05/04/24 09:30 Ketorolac Tromethamine 15 mg Q6HP PRN IV 05/04/24 09:30 05/09/24 09:29 Cefazolin Sodium 50 ml @ 50 mls/hr Q6H IV 05/04/24 14:00 05/05/24 02:59 objective GENERAL: Awake, alert, oriented. LUNGS: Clear. CARDIOVASCULAR: Heart sounds are good. ABDOMEN: Soft. EXT: RLE and right hip TTP. laboratory and microbiology Laboratory Tests 05/04/24 06:20 Test 05/04/24 06:20 Range/Units Serum Glucose 69 L 74-106 mg/dL Problem List Right intertrochanteric hip fracture Status post fall. COPD. Assessment/Plan Continued all current supportive medical care. IV antibiotics as ordered. DT prophylactics. IV Hydralazine for an SBP > 150. Morphine for pain management. Additional plan as per the hospital course. Plan discussed with: Patient MINGO TIRADO MD May 04, 2024 11:32
[2024-05-05] VITALS (19 sets, daily range): BP systolic 101–129; BP diastolic 40–101; PULSE 51–107; RESP 16–24; TEMP 37; O2SAT 95–100
--- NOTE | 2024-05-05 05:45 | DVHDS2 ---
New Physician D'charge PN Admitting Diagnosis Admitting Diagnosis hip pain Discharge Diagnosis Hip fx s/p ortho surgery Operations or Procedures none Reason(s) For Hospitalization Surgery Hospital Course 84 F who comes to ER c/o hip pain after she fell. When she arrived she was noted to have R hip fx. Her CBC and chem were nml on admission. She was admitted to hospital underwent cardiac clearance with echo and ortho surgery saw her and took her to OR and repaired the R hip. Post-operatively she did well and she has been cleared for dc to SNF for rehab. [facility] to arrange for SNF bed and transport and patient to transfer to SNF once bed available. Treatment Plan Discharge Condition of Discharge Good Disposition [facility] Facility Discharge Instructions Diet: Cardiac 2g Na,low cholest Activity: No Restrictions, As Tolerated Medications: see med sheet Follow Up Care Follow Up/Referral: pcp ortho Discharge Statement: "Patient was advised to return to the ER or call 911 if any headaches, dizziness, shortness of breath, chest pain, abdominal pain, bleeding, fevers, or worsening of medical condition. Patient was counseled about treatment plan, medications, possible side effects, patientverbalized understanding. All questions were answered to the best of my ability. This discharge took greater then 30 minutes in planning, reviewing documentation, counseling the patient, and discussing with other team members." SAMEER VILLEGAS MD May 05, 2024 05:45
[2024-05-05 09:19] LABS: Basophils # (auto) 0 10 ^3/uL (0-0.2); Basophils % (auto) 0.3 % (0.0-2.0); Eosinophils # (auto) 0.1 10 ^3/uL (0-0.8); Eosinophils % (auto) 0.8 % (0.0-7.0); Hemoglobin 8.5 g/dL (12.2-16.2); Lymphocytes % (auto) 9.1 % (10.0-50.0); Mean Corpuscular Hemoglobin 29.9 pg (28.0-32.0); Mean Corpuscular Hgb Conc. 32.5 g/dL (32.0-36.0); Monocytes # (auto) 0.9 10 ^3/uL (0-1.3); Monocytes % (auto) 8.4 % (0.0-12.0); Neutrophils # (auto) 9.2 10 ^3/uL (1.6-8.6); Neutrophils % (auto) 81.4 % (37.0-80.0); Platelet Count (auto) 174 10^3/uL (140-450); Red Blood Cells 2.83 10^6/uL (4.0-5.20); Red Cell Distribution Width 14.3 % (11.8-14.3); White Blood Cell 11.3 10^3/uL (4.4-10.8)
[2024-05-05 09:31] LABS: Chloride 104 mmol/L (98-107); Potassium 3.8 mmol/L (3.5-5.1); Sodium 143 mmol/L (136-145)
[2024-05-05 09:32] LABS: Anion Gap 5 (5-15)
[2024-05-05 09:37] LABS: BUN/Creatinine Ratio 36.5 (10.0-20.0); Blood Urea Nitrogen 19 mg/dL (9-23)
[2024-05-05 09:45] LABS: Calcium 8.7 mg/dL (8.7-10.4); Carbon Dioxide 34 mmol/L (20-31); Glucose 158 mg/dL (74-106)
--- NOTE | 2024-05-05 12:50 | DVHPN2 ---
Progress Note - Dictate Date Seen: May 05, 2024 Has the PT tested + for MRSA If YES, has PT been informed?: No Medical Necessity Reason Pt with a Central, PICC or Fol: No The following are medically ne: Pagan Catheter Subjective Patient was seen and evaluated in follow up. Patient is complaining of right hip pain ay surgical site. Per CM, the patient was accepted to [facility] under the care of Dr. Dominique. WBC 11.3, HGB 8.5, HCT 26, BUN 34. Telemetry reviewed. vital signs Vital Sign Date Time Temp Pulse Resp B/P (MAP) Pulse Ox O2 Delivery O2 Flow Rate FiO2 05/05/24 11:23 37.0 89 16 96 05/05/24 09:00 115/48 (70) 05/05/24 06:16 Nasal Cannula* 3 32 Total Intake and Output 05/04/24 05/04/24 05/05/24 15:00 23:00 07:00 Intake Total 1300 ml 450 ml Output Total 300 ml 100 ml Balance 1000 ml 350 ml medications Current Medications Medications Dose Ordered Sig/Obed Route Start Time Stop Time Status Last Admin Dose Admin Sodium Chloride 1,000 ml @ 75 mls/hr [id number] IV 05/03/24 04:15 05/04/24 22:00 75 MLS/HR Ondansetron HCl 4 mg Q4HP PRN IV 05/03/24 04:15 Morphine Sulfate 2 mg Q4HPRN PRN IV 05/03/24 04:15 Nitroglycerin 0.4 mg Q5MINP PRN SL 05/03/24 04:15 Morphine Sulfate 2 mg Q30M PRN IV 05/03/24 04:15 Docusate Sodium 100 mg BIDPRN PRN PO 05/03/24 04:15 Albuterol 2.5 mg Q6HPRN PRN NEB 05/03/24 04:15 05/04/24 03:04 2.5 MG Hydralazine HCl 10 mg Q6HP PRN IV 05/03/24 07:45 Acetaminophen 650 mg Q4HP PRN PO 05/03/24 13:00 05/05/24 02:37 650 MG Lactated Ringer's 1,000 ml @ 100 mls/hr Q10H IV 05/04/24 09:15 Enoxaparin Sodium 30 mg Q12HR SC 05/04/24 10:00 05/05/24 10:05 30 MG Diphenhydramine HCl 25 mg Q4HP PRN IV 05/04/24 09:30 Ondansetron HCl 4 mg Q4HP PRN IV 05/04/24 09:30 Ketorolac Tromethamine 15 mg Q6HP PRN IV 05/04/24 09:30 05/09/24 09:29 objective GENERAL: Awake, alert, oriented. LUNGS: Clear. CARDIOVASCULAR: Heart sounds are good. ABDOMEN: Soft. EXT: RLE and right hip TTP. laboratory and microbiology Laboratory Tests 05/05/24 08:44 Test 05/05/24 08:44 Range/Units Serum Glucose 158 H 74-106 mg/dL Problem List Right intertrochanteric hip fracture Status post fall. COPD. Assessment/Plan Continued all current supportive medical care. DVT prophylactics. IV Hydralazine for an SBP >150. Morphine for pain management. Additional plan as per the hospital course. Plan discussed with: Patient MINGO TIRADO MD May 05, 2024 12:12
--- NOTE | 2024-05-07 16:13 | ECG ---
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
== END 2024-05-05 15:03 | DRG 482 ==
LOC: EDBD 01:45 → ER 01:45 → OVERFLOW 04:04 → WEST WING 10:01 → TELE-WESTW 05-04 17:49
PROVIDERS: ADMIT Student in an Organized Health Care Education/Training Program; ATTEND Student in an Organized Health Care Education/Training Program
PROC: 0QS604Z Reposition Right Upper Femur with Internal Fixation Device, Open Approach (ICD-10-PCS; principal; 2024-05-04 08:02)
DX: S72.141A Displaced intertrochanteric fracture of right femur, initial encounter for closed fracture (principal); J44.9 Chronic obstructive pulmonary disease, unspecified; E11.9 Type 2 diabetes mellitus without complications; I25.10 Atherosclerotic heart disease of native coronary artery without angina pectoris; W06.XXXA Fall from bed, initial encounter; Y93.89 Activity, other specified; Y92.89 Other specified places as the place of occurrence of the external cause; Y99.8 Other external cause status; Z82.49 Family history of ischemic heart disease and other diseases of the circulatory system; Z83.3 Family history of diabetes mellitus; Z79.51 Long term (current) use of inhaled steroids; Z79.899 Other long term (current) drug therapy
CPT/HCPCS: 36415; 71045; 73502; 76000; 80048; 80053; 81001; 85025; 85610; 85730; 86850; 86900; 86901; 93005; 93306; 94640; 96374; 97163; G0378; J1885; J2250; J2405; J2704; J3490